=== PATIENT | female | born 1975 | race Caucasian/White ===

== ENCOUNTER 2018-11-08 10:55 | Emergency (ER) | payer MEDICAID ==
[~2018-11-08] VITALS: Ht 167.6 cm; Wt 65.0 kg
[2018-11-08 11:03] VITALS: Ht 167.6 cm; Wt 65.0 kg
[2018-11-08] MEDS ORDERED: IBUPROFEN 800 MG TAB PO ONE (12:00)
[2018-11-08] MEDS ORDERED: HYDR-4011 PO (12:27)
[2018-11-08] MEDS ORDERED: IBUP800T48 PO (12:27)
--- NOTE | 2018-11-08 12:27 | ERD ---
ER Documentation Chief Complaint Chief Complaint Complains of right ankle pain since this am HPI This is a 43-year-old female with a nonsignificant past medical history presents ED with right lateral ankle pain since this morning. Patient states that she was standing on steps that were roughly 3 feet off the ground and she actually fell as she was walking down the step causing her right ankle to invert. Patient admits to painful range of motion, decreased range of motion and swelling. Difficulty ambulating. Denies tingling, numbness, lack sensation. No known drug allergies. ROS All systems reviewed and are negative except as per history of present illness. Allergies Allergies: Coded Allergies: No Known Allergy (Unverified , 11/08/18) PMhx/Soc Medical and Surgical Hx: pt denies Medical Hx, pt denies Surgical Hx Hx Alcohol Use: No Hx Substance Use: No Hx Tobacco Use: No Smoking Status: Never smoker Physical Exam Vitals Vital Signs Date Temp Pulse Resp B/P (MAP) Pulse Ox O2 O2 Flow FiO2 Time Delivery Rate 11/08/18 98.0 64 20 108/51 99 11:03 (70) Physical Exam Const: No acute distress Head: Atraumatic Eyes: Normal Conjunctiva ENT: Normal External Ears, Nose and Mouth. Neck: Full range of motion. No meningismus. Resp: Clear to auscultation bilaterally Cardio: Regular rate and rhythm, no murmurs Ext: No cyanosis Lower Extremity -right Skin: Mild swelling along right lateral malleolus and abrasion to right alvarado Compartments: Soft Motor: Decreased range of motion with ankle movement, full active range of motion hip/knee//foot Sensation: Intact to light touch FDWS/MF/LF/P surfaces. Bones: Moderate swelling along right lateral malleolus, nontender pelvis/knee/proximal tibia/ /foot Joints: No effusion or laxity Pulses/Perfusion: 2+ DP, Capillary refill < 2 seconds Neur: Awake and alert Psych: Normal Mood and Affect Results 24 hrs Current Medications Medications Dose Sig/Dariusz Start Time Status Last (Trade) Ordered Route PRN Stop Time Admin Dose Reason Admin Ibuprofen 800 mg ONCE ONCE 11/08/18 DC 11/08/18 (Motrin) PO 12:00 11:53 11/08/18 12:01 Procedures/MDM EKG, MONITORS, & DIAGNOSTIC IMAGING: [place] [id number] Radiology Main Line: [phone] DIAGNOSTIC IMAGING REPORT Patient: SHELIA DOUGHERTY : 1975 Age: 43 Sex: F MR #: [id number] DOS: 11/08/18 1147 Ordering MD: TANO CHAMBERLAIN PA-C Location: [facility] Room/Bed: PROCEDURE: XR Ankle. CLINICAL INDICATION: pain after fall TECHNIQUE: 3 views of the right ankle were performed. COMPARISON: None. FINDINGS: Acute, comminuted and minimally-displaced interarticular fracture of the distal fibula at and below the level of the syndesmosis. No tibial fractures detected. Talus appears intact. Alignment appears maintained. Lateral malleolar soft tissue swelling. IMPRESSION: Acute fracture of the distal fibula with adjacent soft tissue swelling. RPTAT:AAJJ Physician Will Date Time Electronically viewed and signed by Mirian Gayle Physician on 11/08/2018 12:15 RF/ CC: TANO CHAMBERLAIN PA-C [id number] [place] [address] Radiology Main Line: [phone] DIAGNOSTIC IMAGING REPORT Patient: SHELIA DOUGHERTY : 1975 Age: 43 Sex: F MR #: [id number] DOS: 11/08/18 1147 Ordering MD: TANO CHAMBERLAIN PA-C Location: [facility] Room/Bed: PROCEDURE: Right tibia-fibula CLINICAL INDICATION: pain after fall TECHNIQUE: AP and lateral views of the right tibia-fibula performed. COMPARISON: None FINDINGS: Redemonstration of acute fracture of the distal fibula, as described on dedicated ankle radiograph. No additional fractures of the lower leg are detected. Lateral malleolar soft tissue swelling. IMPRESSION: Distal fibular fracture, as described on ankle radiograph. RPTAT:AAJJ Physician Will Date Time Electronically viewed and signed by Physician Will on 11/08/2018 12:16 RF/ CC: TANO CHAMBERLAIN PA-C [id number] PROCEDURES: Splint Type: Short leg splint Extremity: Right lower extremity Indication: Distal fibular fracture Splint Assessment: Neurovascularly intact post splint placement with good fit. The patient was consented at bedside prior to splint application and states understanding of risks, benefits, and alternatives. The patient was neurovascularly intact prior to and status post application of the splint. The patient tolerated the procedure well and there were no complications ER COURSE: The patient was given ibuprofen The medication was well tolerated and the patient reports improvement in symptoms. The patient was stable throughout ED course. I kept the patient and/or family informed of laboratory and diagnostic imaging results throughout the emergency room course. The patient was promptly evaluated and a treatment plan was devised based on H&P and other data. This plan was discussed with the patient who agreed and had no further questions or concerns prior to discharge. MEDICAL DECISION MAKING: This is a 43-year-old female presents ED with right ankle pain status post fall earlier today. X-rays remarkable for distal fibular fracture. Patient was placed in a posterior short leg splint and given crutches to aid with ambula tion. Patient was advised to follow-up with step down specialist in the next 48 hours. Patient was also given copies of imaging done in the emergency department today. History and physical examination other data not consistent with emergent processes including but not limited to open fracture, dislocation, tendon rupture, ischemia, neurovascular injury, compartment syndrome, septic joint, avascular necrosis, osteomyelitis, necrotizing fasciitis, septic joint, septic arthritis, or other emergent conditions. Patient's vitals are stable and can be managed outpatient with close follow-up. Advised patient to follow-up with primary care in the next 48 hours. Return to ED with any worsening symptoms. DISPOSITION PLAN: We discussed follow up with the patient's primary care doctor within 24 to 48 hours. Patient counseled regarding my diagnostic impression and care plan. Prior to discharge all questions answered. Pt agrees with treatment plan and understands strict return precautions. Precautionary instructions provided including instructions to return to the ER if not improving or for any worsening or changing symptoms or concerns. SPECIALIST FOLLOW UP RECOMMENDED: ortho Patient has been advised to follow up with primary care in 1-2 days. Disclaimer: Inadvertent spelling and grammatical errors are likely due to EHR/dictation software use and do not reflect on the overall quality of patient care. Also, please note that the electronic time recorded on this note does not necessarily reflect the actual time of the patient encounter. Departure Diagnosis: Primary Impression: Fibula fracture Encounter type: initial encounter Fibula location: distal Fracture type: closed Fracture morphology: unspecified fracture morphology Laterality: right Qualified Codes: S82.831A - Other fracture of upper and lower end of right fibula, initial encounter for closed fracture Condition: Stable Patient Instructions: Ankle Fracture (Distal Fibula), Closed Referrals: ADELE ALEJANDRE MD [facility] () [facility] () Additional Instructions: Patient advised to follow-up with step down specialist in the next 48 hours. Paciente aconseja volver a Departamento de urgencias inmediatamente para sntomas nuevos o que empeoran . Paciente aconseja posteriores con el PCP en 1-2 aguirre . Paciente verbaliza la comprehensin y est de acuerdo con el tratamiento y el curso de accin. Si el paciente no tiene ninguna de atencin primaria pueden seguir con [facility] [address] [place] [address] o [facility] + [address] [address] TANO CHAMBERLAIN PA-C Nov 08, 2018 12:26
[2018-11-08 12:43] VITALS: BP 115/62; PULSE 65; RESP 18
== END 2018-11-08 12:43 | disposition home or self-care (01) ==
LOC: FTE 10:55
DX: S82.831A Other fracture of upper and lower end of right fibula, initial encounter for closed fracture (principal); W18.39XA Other fall on same level, initial encounter; Y92.9 Unspecified place or not applicable
CPT/HCPCS: 29515; 73590; 73610; Z7502; Z7610